=== PATIENT | male | born 1960 | race Caucasian/White ===

== ENCOUNTER → 2019-04-10 | Outpatient (CLI) | payer SELFPAY ==
--- NOTE | 2019-04-10 13:34 | CT_ITS ---
STUDY: CARDIAC CALCIUM SCORING - CT CHEST REASON FOR EXAM: Male, 58 years old. Hyperlipidemia RADIATION DOSAGE (If Supplied By Facility): CTDIvol = ( 12 ) mGy, DLP = ( 244 ) mGycm TECHNIQUE: Axial non-enhanced images were acquired through the heart for the sole purpose of measuring coronary artery calcium. Individualized dose optimization techniques were used for this CT. COMPARISON: None. FINDINGS: Please see the patient's medical record for a personalized calcium score. There are mild emphysematous changes noted in the lungs. There is linear opacity in the lung bases likely represent atelectasis. There are calcified granulomata noted. There are calcified mediastinal lymph nodes, consistent with prior granulomatous disease. There is a 2 cm indeterminate left adrenal nodule. CT/Limited Chest CT w/CCTA IMPRESSION: Please see the patient's medical record for a personalized calcium score. Mild emphysema. Linear opacity in the lung bases which likely represent atelectasis. Evidence of prior granulomatous disease. 2 cm indeterminate left adrenal nodule. Please go to: [email or web address] , for a description of the calculator. Electronically Signed: Mack Valera, at 17:34 EDT Tel , Service support ,
[2019-04-10 13:47] VITALS: BP 140/82; PULSE 71; RESP 16; O2SAT 93; BMI 39.5
--- NOTE | 2019-04-11 09:57 | CA.SCORE ---
Calcium Scoring Date of Study:: 04/10/19 Coronary Calcium Scoring: High-resolution Computed Tomographic imaging of the chest was performed on [ ], with particular attention paid to the coronary arteries. Images from the examination were analyzed for the presence and extent of coronary artery calcification , using coronary calcium quantification software. The patient tolerated the procedure well and there were no complications. The results of the coronary calcification analysis are provided below. - Findings Left Main (LM): 20 Left Anterior Descending (LAD): 0 Left Circumflex (LCX): 0 Right Coronary Artery (RCA): 58 Total Agatston Score: 78 Percentile Rankin-75% Calcium Scoring Interpretation: 0 No identifiable atherosclerotic plaque. Very low cardiovascular disease risk. <5% chance of presence coronary artery disease A Negative Examination 1-10 Minimal Plaque burden. Significant coronary artery disease very unlikely. 11-100 Mild plaque burden. Likely mild or minimal coronary atherosclerosis. 101-400 Moderate plaque burden Moderate non-obstructive coronary artery disease highly likely. Over 400 Extensive plaque burden. High likelihood of at least one significant coronary stenosis (>50% diameter) Conclusion: The total calcium score (78.1) is between the 50th and 75th percentile for men between the ages of 55 and 59. (Exact percentile calculated to be 54%; this means 53% of the population has a lower calcium score and 46% of the population is a higher calcium score than this patient.) A full evaluation of cardiac risk including assessment of all conventional risk factors, and the scores and percentile rankings reported herein should be evaluated in this context.
== END | disposition home or self-care (01) ==
PROVIDERS: Family Provider Internal Medicine; PCP Internal Medicine; Referring Provider Internal Medicine; Visit Provider Internal Medicine
DX: E78.5 Hyperlipidemia, unspecified (principal)
CPT/HCPCS: 75571; 76380

== ENCOUNTER 2020-02-18 09:07 | Emergency (ER) | payer MEDICAID, SELFPAY ==
[2020-02-18 08:07] VITALS: BMI 39.5
[2020-02-18 09:09] VITALS: BP 129/87; PULSE 87; RESP 16; TEMP 36.6; O2SAT 93; BMI 37.9
[2020-02-18 09:18] VITALS: BP 125/94; PULSE 83; RESP 16; O2SAT 95
--- NOTE | 2020-02-18 09:21 | EKG12_ITS ---
Test Reason : CP Blood Pressure : / mmHG Vent. Rate : 080 BPM Atrial Rate : 080 BPM P-R Int : 142 ms QRS Dur : 090 ms QT Int : 386 ms P-R-T Axes : 084 048 071 degrees QTc Int : 445 ms Normal sinus rhythm Normal ECG Confirmed by RACHEL BOATENG ([id number]), newspaper editor managing CLIFF CARO ([id number]) on 02/22/2020 2:13:38 PM Referred By: MICHELLE Confirmed By:RACHEL BOATENG
--- NOTE | 2020-02-18 09:22 | ED.DCSUM_ITS ---
History of Present Illness Chief Complaint: Chest Pain Informant: Patient Onset: Yesterday Activity at onset: - - awoke w/ sx around 24 hrs ago Timing: Continuous Quality: Sharp Location: - - upper mid-chest, radiates straight through to back, nowhere else Current Severity: Moderate Maximum Severity: Moderate Worsened By: Breathing - in deeply, - - lying on sides. Not Worsened By: Exertion, Movement of Arm, Movement of Torso, Eating, Palpation Relieved By: - - lying supine on back. no changes w/ bending over. Associated Symptoms: Negative for: Nausea, Vomiting, Diaphoresis, Dyspnea, Cough, Fever, Lightheadedness, Acid Reflux, Palpitations Narrative: Patient has had this chest discomfort since he woke up yesterday and it has persisted. He went to urgent care this morning, after doing a chest x-ray they sent him to the ER. That result showed stable pleural abnormality in the left base, patient is not having symptoms there. So this is essentially negative for anything acute. He has had no recent travel. Patient presents during the national coronavirus emergency declaration/pandemic. He denies any known contact with anyone infected with COVID-19. He denies traveling out of the immediate area recently. No leg pain or swelling. He has COPD and has experienced no symptoms of illness or exacerbation lately. No changes with exertion. No known history of heart disease. No differences with swallowing or eating. Prior Similar Symptoms: No Recent Illness/Hospitalization: No CVD Risk Factors: Hypertension, Diabetes, - - quite smoking 5-10 yrs ago PE Risk Factors: Negative for: Recent Travel/Surgery, Recenet Immobilization, Prior DVT or PE, Cancer, OCP + Smoking + >/=35 Past Medical History - Allergies and Home Meds Allergies/Adverse Reactions: Allergies No Known Allergies Allergy (Verified 02/18/20 09:08) Primary Care Physician: Amy Griffin DO [Primary Care Provider] - Surgical History: herniorrhaphy Smoking Status: Former smoker Review of Systems General: Denies: Chills, Fever, Sweats Eyes: Denies: Visual changes - bilaterally, Diplopia ENT: Denies: Bilateral ear pain, Rhinorrhea, Sore throat Cardiovascular: Reports: Chest pain. Denies: Palpitations Respiratory: Denies: Dyspnea, Cough, Dyspnea on exertion, Orthopnea Gastrointestinal: Denies: Abdominal pain, Nausea, Vomiting, Diarrhea, Melena, Hematochezia Genitourinary: Denies: Dysuria, Hematuria, Frequency Musculoskeletal: Reports: Back pain. Denies: Myalgias, Neck pain, Swelling, Extremity Pain Skin: Denies: Rash, Wounds Neurological: Denies: Headache, Weakness, Numbness Physical Exam Vital Signs/Narrative: Vital Signs Temp Pulse Resp BP Pulse Ox 02/18/20 09:18 83 16 125/94 H 95 02/18/20 09:09 97.9 F 87 16 129/87 H 93 Inital Vital Signs reviewed: Yes General: Well nourished, Well developed, No Acute Distress Head: Normocephalic, Atraumatic Eyes: Perrl, EOMI ENT: Moist mucous membranes, No rhinorrhea Neck: Supple, Nontender, No lymphadenopathy, No JVD Cardiovascular: Regular rate, Regular rhythm, No murmurs. Negative for: Tachycardia Respiratory: No distress - no splinting on deep inspiration, CTA bilaterally, Chest nontender Abdomen: Soft, Nontender, Nondistended, Normal bowel sounds Back: Nontender, Normal Inspection. Negative for: CVA tenderness Extremities: Nontender - and no palpable cords, No edema. Negative for: Calf Tenderness Skin: Normal color, No rash, No Trauma Neurological: Alert, Oriented x3, Cranial nerves II-XII grossly intact, Normal Strength, Normal Sensation, Normal Gait Psychological: Normal affect, Normal Mood Diagnostic/Tx/Re-eval Laboratory Tests 02/18/20 02/18/20 02/18/20 Range/Units 09:15 09:15 09:15 WBC 10.0 (4.4-11.0) K/mm3 RBC 5.39 (4.6-6.2) M/mm3 Hgb 15.7 (13.0-16.5) g/dL Hct 49.6 (40-54) % MCV 92.0 (80-94) fL MCH 29.1 (27.0-32.0) pg MCHC 31.7 L (32-36) g/dL RDW Std Deviation 43.4 (35.1-43.9) fl RDW Coeff of Buster 12.9 (11.6-14.6) % Plt Count 284 (150-450) K/mm3 MPV 9.5 (6.2-12.0) fl Immature Gran % (Auto) 0.400 (0.0-0.9) % Neut % (Auto) 57.7 (47-70) % Lymph % (Auto) 29.5 (19-41) % [place] % (Auto) 10.7 H (0-10) % Eos % (Auto) 1.3 (0-5) % Baso % (Auto) 0.4 (0-1) % Absolute Neuts (auto) 5.7 (2.0-7.7) X10^3/uL Absolute Lymphs (auto) 2.94 (0.83-4.51) X10^3/uL Nucleated RBC % 0 (0-5) % D-Dimer Quant (PE/DVT) 0.37 (0.27-0.49) FEU/ug/m Sodium 135 L (136-145) mmol/L Potassium 5.2 H (3.5-5.1) mmol/L Chloride 103 (98-107) mmol/L Carbon Dioxide 30.0 (21.0-32.0) mmol/L Anion Gap 2 L (5-15) BUN 20 H (7-18) mg/dL Creatinine 1.13 (0.70-1.30) mg/dL Estim Creat Clear Calc 68.10 ml/min Est GFR (MDRD) Af Amer 85 (>60) mL/min Est GFR (MDRD) Non-Af 71 (>60) mL/min BUN/Creatinine Ratio 17.7 (10-20) RATIO Glucose 110 H (74-106) mg/dL Calcium 9.4 (8.5-10.1) mg/dL Troponin I < 0.015 (<0.045) ng/mL - Rhythm Strip Rhythm Strip: Sinus Rhythm Rate: 80 Ectopy: None Treatment: GI Cocktail Repeat Eval: improved, barely there COSME Risk: No Positive COSME Elements Score: 0 - Medical Decision Making Work-up is unremarkable, I reviewed the chest x-ray that he had at urgent care this morning. D-dimer is within normal limits, ruling out pulmonary embolus as acute cause for the symptoms, his troponin is negative with a normal EKG while he was having symptoms, and the discomfort is atypical so I do not think this is angina. He is feeling better after GI cocktail, stating that when he takes a very deep breath he can barely feel it, esophageal disorders are certainly in the differential here, as are her upper airway disorders, there is no history of a foreign body aspiration, or anything else that is dangerous in my opinion. This is not consistent with pericarditis. He is stable to go home, we discussed his possibilities and he is reassured and comfortable with following up with his doctor for persistent symptoms. We also discussed trying albuterol inhaler if he gets worse, see if that helps anything and he is comfortable with that. He could also try H2 blockers or PPIs, but I do not think he needs any prescr iptions right now. ED Disposition - Plan for ED Patient: Disposition: Home or Assisted Living Diagnosis: Chest pain, atypical Instructions: ED Chest Pain NonCardiac Referrals: Amy Griffin, DO [Primary Care Provider] - 3-5 Days if not improving
[2020-02-18 09:31] LABS: Absolute Lymphocyte Count 2.94 X10^3/uL (0.83-4.51); Absolute Neutrophil Count 5.7 X10^3/uL (2.0-7.7); Basophil# 0.04 X10^3/uL; Basophil% 0.4 % (0-1); Eosinophil# 0.13 X10^3/uL; Eosinophils% 1.3 % (0-5); Hematocrit 49.6 % (40-54); Hemoglobin 15.7 g/dL (13.0-16.5); Lymphocyte # 2.94 X10^3/ul (4.0); Lymphocyte % 29.5 % (19-41); Mean Corp Hgb Conc 31.7 g/dL (32-36); Mean Corpuscular Hgb 29.1 pg (27.0-32.0); Mean Platelet Vol. 9.5 fl (6.2-12.0); Monocyte# 1.06 X10^3/uL; Monocyte% 10.7 % (0-10); NRBC Flagged by Analyzer 0 % (0-5); Neutrophil # 5.74 X10^3/uL (2.7-7.7); Neutrophil % 57.7 % (47-70); Platelet Count 284 K/mm3 (150-450); RBC Distribution Width CV 12.9 % (11.6-14.6); RBC Distribution Width SD 43.4 fl (35.1-43.9); Red Blood Count 5.39 M/mm3 (4.6-6.2)
[2020-02-18] MEDS: Mag Hydrox/Al Hydrox/Simeth 30 ML UDC PO (09:31)
[2020-02-18 09:44] LABS: Anion Gap 2 (5-15); BUN 20 mg/dL (7-18); BUN/Creat Ratio 17.7 RATIO (10-20); Calcium,Total 9.4 mg/dL (8.5-10.1); Chloride 103 mmol/L (98-107); Creatinine, Serum 1.13 mg/dL (0.70-1.30); D-Dimer Quantitative (DVT/PE) 0.37 FEU/ug/m (0.27-0.49); EST Glomerular Filtration Rate 71 mL/min (>60); Est Glom Filt Rate - Afr Amer 85 mL/min (>60); Glucose 110 mg/dL (74-106); Potassium 5.2 mmol/L (3.5-5.1); Sodium Level 135 mmol/L (136-145)
[2020-02-18 10:22] VITALS: BP 111/81; PULSE 75; RESP 16; O2SAT 94
[2020-02-18 10:36] VITALS: BP 103/78; PULSE 69; RESP 15; O2SAT 97
== END 2020-02-18 10:41 | disposition home or self-care (01) ==
PROVIDERS: Emergency Provider Emergency Medicine; PCP Internal Medicine
DX: R07.89 Other chest pain (principal); J06.9 Acute upper respiratory infection, unspecified; E11.9 Type 2 diabetes mellitus without complications; I10 Essential (primary) hypertension; Z87.891 Personal history of nicotine dependence
CPT/HCPCS: 71046; 80048; 84484; 85025; 85379; 93005; 99284; A4216

== ENCOUNTER → 2020-02-18 | Outpatient (CLI) | payer MEDICAID, SELFPAY ==
[2020-02-18 08:07] VITALS: BMI 39.5
--- NOTE | 2020-02-18 08:14 | RAD_ITS ---
STUDY: X-RAY CHEST REASON FOR EXAM: Male, 59 years old. Pain w deep inspiration x 2 days TECHNIQUE: PA and lateral views of the chest. COMPARISON: Comparison is made with prior study dated 08/09/2016. FINDINGS: Hyperinflation. Stable pleural parenchymal changes at the left lung base. Normal size heart. Normal mediastinum and narinder. Normal visualized pulmonary arteries. Normal visualized aortic arch and descending thoracic aorta. There are diffuse degenerative changes of the visualized thoracic spine. Normal visualized ribs, clavicles, and shoulders. There is no demonstrated abnormality of the visualized soft tissue structures of the upper abdomen. RAD/Chest PA and Lateral IMPRESSION: Stable pleural-parenchymal changes of the left lung base. Electronically Signed: Peter Bernabe, at 8:36 EDT , Service support ,
== END | disposition home or self-care (01) ==
LOC: HPRAD 08:14
PROVIDERS: PCP Internal Medicine; Referring Provider Physician Assistant Surgical; Visit Provider Physician Assistant Surgical
DX: J06.9 Acute upper respiratory infection, unspecified (principal)
CPT/HCPCS: 71046

== ENCOUNTER 2021-04-18 17:05 | Emergency (ER) | payer OTHER, MEDICAID, SELFPAY ==
[2021-04-18 17:06] VITALS: BP 178/131; PULSE 88; RESP 14; TEMP 36.8; O2SAT 95; BMI 37.8
--- NOTE | 2021-04-18 17:20 | EX.ED.GENINJ ---
HPI History of Present Illness Chief Complaint: Head Injury Informant: patient Onset/Context/Timing Onset: Today (Just prior to arrival) Mechanism/Context: Blunt Injury and Fall Location of pain/injuries: - (Scalp) Quality of Pain: - (Sore) Current Severity: Mild Maximum Severity: Mild Worsened by: Palpation Relieved by: Leaving alone with regards to pain, but bleeding better with pressure Associated Symptoms Associated Symptoms: Negative for Parasthesias, Weakness, Loss of function, Inability to ambulate, Loss of consciousness and Amnesia Narrative Narrative: Patient states he was folding up his camper, he was on a stepstool and accidentally tipped over, he fell and when he caught himself on the ground, his scalp hit a industrial engineering technologist on the ground sustaining a laceration to his scalp. He denies any other injuries. He denies any neurologic symptoms, vision changes, headache, nausea, vomiting. He is on no anticoagulants and no antiplatelets. Tetanus Immunization: >10 years [facility] Medical History (Updated 04/18/21 @ 19:[address] Ag Ruiz MD) Allergic rhinitis Gyopd-[id number] deficiency Anxiety disorder Chronic obstructive lung disease Hypertension Nicotine dependence in remission Home Medications losartan 50 mg tablet 50 mg PO DAILY 02/18/20 [History Last Taken Unknown] metformin 500 mg tablet 500 mg PO DAILY 02/18/20 [History Last Taken Unknown] Allergy/AdvReac Type Severity Reaction Status Date / Time No Known Allergies Allergy Verified 04/18/21 17:05 Family History Mother Breast cancer Father CAD (coronary artery disease) Surgical History History of ventral hernia repair S/P colonoscopy Social History Smoking Status: Former smoker quit date: 01/05/14 pack-years: 78 alcohol intake: never substance use type: does not use what type of physical activity do you participate in: walking and weight training frequency: 3-4 times per week ROS ROS ED Constitutional Constitutional ED: Denies chills or fever(s) Cardiovascular Cardiovascular: Denies chest pain or pedal edema Respiratory/Chest Respiratory/Chest: Denies cough or dyspnea Gastrointestinal Gastrointestinal: Denies nausea or vomiting Musculoskeletal Musculoskeletal: Denies abnormal gait, back pain, difficulty walking, extremity pain, joint pain, neck pain or numbness Integumentary Denies Abrasions, rash or wounds Neurologic Neurologic: Denies headache(s), paresthesias, seizures or weakness EXAM Physical Exam Const Vital Signs: 04/18/21 17:06 04/18/21 17:37 Temperature 98.2 F Temperature Source Temporal Pulse Rate 88 Respiratory Rate 14 Respiratory Effort Normal Non-Labored Respiratory Depth Normal Respiratory Pattern Normal Blood Pressure 178/131 H Blood Pressure Mean 146 Pulse Ox 95 Oxygen Delivery Method Room Air Positive well nourished and well developed General Appearance ED: well developed and NAD HEENT HEENT Narrative: 4 cm full-thickness scalp laceration on top of the patient's head, no crepitance or depression, minimally tender. No active bleeding after the patient was holding pressure for a while. No brar sign, periorbital ecchymosis, extraocular palsy, CSF otorhinorrhea, hemotympanum. Eyes PERRL, EOMs intact bilaterally and conjunctivae normal Neck full ROM and supple Back/Spine normal ROM and normal to inspection Neuro oriented x3, no focal motor deficits and no sensory deficits noted Sensorium / Orientation: alert Psych mental status grossly normal and thought process normal Skin Rashes: no rashes Trauma: laceration linear PROC Procedures Lacerations scalp: Length: 5 cm Depth: Fascia (down to galea, which is intact) Shape: irregular Prep: Sterile Conditions and Chlorhexadine Laceration repair: Irrigated (60cc sterile saline under pressure), Lidocaine with epi (5cc), Local and Wound explored (galea intact) Number of Sutures/[place]: 6 Suture Information: - (stainless steel skin suzanne) MDM MDM MDM Narrative Medical decision making narrative: Patient meets [place] head CT rule for observation and not requiring a CT scan. He was fine with that. He did not develop any symptoms of a head injury/concussion. His laceration was repaired after observation. In emergency department, he was discharged home in stable improved condition, suzanne out in approximately 6 days. Discharge Plan Triage Chief Complaint: Head Injury ED Provider: Ag Ruiz Dx/Rx/DC Orders Clinical Impression: Laceration of scalp Instructions: ED Laceration Scalp Stitches or Suzanne Prescriptions: No Action losartan 50 mg tablet 50 mg PO DAILY RF: 0 metformin 500 mg tablet 500 mg PO DAILY RF: 0 Primary Care Provider: Amy Griffin Referrals: Amy Griffin DO [Primary Care Provider] - 7 Days for suture removal Disposition Disposition: Home, Self Care
[2021-04-18] MEDS: Diphth,Pertuss(Acell),Tet Vac 0.5 ML Vial IM (17:30)
[2021-04-18] MEDS: Lidocaine 1% /Epi 1:100 (20ml) 20 ML Vial 10 ML INFILT (18:17)
== END 2021-04-18 19:14 | disposition home or self-care (01) ==
PROVIDERS: Emergency Provider Emergency Medicine; PCP Internal Medicine
DX: S01.01XA Laceration without foreign body of scalp, initial encounter (principal); W01.0XXA Fall on same level from slipping, tripping and stumbling without subsequent striking against object, initial encounter; Z87.891 Personal history of nicotine dependence
CPT/HCPCS: 12002; 90715; 99284

== ENCOUNTER 2021-07-23 11:42 | Outpatient (CLI) | payer OTHER, MEDICAID, SELFPAY ==
[2021-07-23] MEDS: 0.9% Saline Lock 10 ML Syringe IV (12:00)
[2021-07-23 12:01] VITALS: BP 156/102; PULSE 75; RESP 18; TEMP 36.8; O2SAT 93; BMI 37.2
[2021-07-23 13:00] VITALS: BP 143/86; PULSE 63; RESP 16; TEMP 36.8; O2SAT 94
[2021-07-23 13:48] VITALS: BP 138/89; PULSE 62; RESP 16; TEMP 36.8; O2SAT 95
== END 2021-07-23 23:59 | disposition home or self-care (01) ==
LOC: MS3OUT 11:43 → MS3 11:43
PROVIDERS: PCP Internal Medicine; Referring Provider Nurse Practitioner Adult Health; Visit Provider Nurse Practitioner Adult Health
DX: Z23 Encounter for immunization (principal); E11.9 Type 2 diabetes mellitus without complications; U07.1 COVID-19
CPT/HCPCS: J7050; M0245; Q0245; A4216

== ENCOUNTER → 2021-12-18 | Outpatient (CLI) | payer OTHER, MEDICAID, SELFPAY ==
--- NOTE | 2021-12-18 16:40 | RAD_ITS ---
EXAM: XR CHEST, 2 VIEWS CLINICAL INDICATION: CHRONIC SHORTNESS OF BREATH TECHNIQUE: Frontal and lateral views of the chest. This report was created using [employer] report generation technology. COMPARISON: 02/18/20 FINDINGS: LUNGS AND PLEURAL SPACES: 6 mm calcified granuloma involving the right midlung. No pneumothorax. No effusion. HEART: Unremarkable. Cardiac silhouette not enlarged. MEDIASTINUM: Central airways and mediastinal contour are unremarkable. BONES/JOINTS: Degenerative changes of the spine. Diffuse osteopenia. SOFT TISSUES: Unremarkable. RAD/Chest PA and Lateral IMPRESSION: No acute disease. Electronically Signed: Janes Alicia MD at 23:35 EDT ,
== END | disposition home or self-care (01) ==
PROVIDERS: PCP Internal Medicine; Referring Provider Internal Medicine; Visit Provider Internal Medicine
DX: R06.02 Shortness of breath (principal)
CPT/HCPCS: 71046

== ENCOUNTER → 2022-01-12 | Outpatient (CLI) | payer OTHER, MEDICAID, SELFPAY ==
--- NOTE | 2022-01-12 13:59 | PFTCOMP ---
COMPLETE PULMONARY FUNCTION TEST INTERPRETATION Brief HPI: Patient is a 61-year-old male, currently under the care of Dr. Griffin, who presents to [facility] for complete pulmonary function tests secondary to diagnosis of post COVID. Respiratory therapist reports good effort and reproducible results. Interpretation: Forced expiration spirometry shows a severe large airways obstructive ventilatory defect with an FEV1 of 39% predicted. There is no significant bronchodilator response by strict ATS criteria. Spirograms are of good quality and plateau slowly, indicating slowly emptying areas of the lungs. The respiratory flow volume loop shows decreased expiratory flow rates at all lung volumes consistent with airway obstruction. Lung volumes by body plethysmography show an elevated total lung capacity at 9.18 L, 143% predicted. FRC and RV are elevated out of proportion. Lung volume measurements are consistent with hyperinflation and air-trapping. Diffusion capacity by carbon monoxide is decreased at 69% predicted. The airway resistance is normal. Compared to previous pulmonary function tests from 10/18/2016, there has been no significant change in spirometry or DLCO, but air-trapping is much worse. Impression: Irreversible severe large airways obstructive ventilatory defect resulting in air trapping with hyperinflation and a reduction in diffusion capacity.
== END | disposition home or self-care (01) ==
PROVIDERS: PCP Internal Medicine; Referring Provider Internal Medicine; Visit Provider Internal Medicine
DX: R06.02 Shortness of breath (principal)
CPT/HCPCS: 94010; 94060; 94726; 94729

== ENCOUNTER → 2023-03-12 | Outpatient (CLI) | payer OTHER, MEDICAID, SELFPAY ==
[2023-03-12 12:42] VITALS: PULSE 100; PULSE 74; PULSE 78; PULSE 89; PULSE 91; PULSE 93; PULSE 96; PULSE 98; O2SAT 85; O2SAT 89; O2SAT 90; O2SAT 92; O2SAT 93; O2SAT 94; O2SAT 96
--- NOTE | 2023-03-13 09:55 | PCM.PSN.6M ---
PSN 6 Minute Walk Test 6 Minute Walk Test 6 Minute Walk Test: 6 Minute Walk Test PSN:6-Minute Walk Test Start: 03/12/23 12:41 Freq: Status: Active Protocol: [id number].6MINW Document 03/12/23 12:42 VIC (Rec: 03/12/23 12:45 VIC [id number]) 6 Minute Walk Test Date Performed 03/12/23 Time Performed 12:30 Height 5 ft 9 in Weight: 252 lb Weight in Pounds 252.[address]: Wilberto Pires Assistive device used: None Pre-test Oxygen Delivery Method Room Air Pulse Ox 93 Pulse Rate (60-100) 78 Dyspnea Josh Scale (0-10) 0 Exertion Josh Scale (6-20) 6 1st minute Oxygen Delivery Method Room Air Pulse Ox 92 Pulse Rate (60-100) 89 2nd minute Oxygen Delivery Method Room Air Pulse Ox 85 Pulse Rate (60-100) 91 3rd minute Oxygen Flow Rate (L/min) 2 Oxygen Delivery Method Nasal Cannula Pulse Ox 94 Pulse Rate (60-100) 93 4th minute Oxygen Flow Rate (L/min) 2 Oxygen Delivery Method Nasal Cannula Pulse Ox 92 Pulse Rate (60-100) 96 5th minute Oxygen Flow Rate (L/min) 2 Oxygen Delivery Method Nasal Cannula Pulse Ox 89 Pulse Rate (60-100) 100 6th minute Oxygen Flow Rate (L/min) 2 Oxygen Delivery Method Nasal Cannula Pulse Ox 90 Pulse Rate (60-100) 98 Dyspnea Josh Scale (0-10) 3 Exertion Josh Scale (6-20) 13 Post-test Oxygen Flow Rate (L/min) 2 Oxygen Delivery Method Nasal Cannula Pulse Ox 96 Pulse Rate (60-100) 74 Full Laps Walked 17 Partial Lap, Number of Tiles Walked 2 Total Distance Walked (ft) 1005 Interpretation Interpretation: The patient ambulated 1005 feet over the course of 6 minutes beginning on room air without assistive devices. Pretesting oxygen saturation was noted to be 93% on room air. With ambulation, the [place] oxygen saturation was 85%, requiring the initiation of 2 L/min to maintain appropriate oxygen saturations throughout the remainder of the test. Recommendations Recommendations: 2 L/min of supplemental oxygen should be utilized with exertion.
== END | disposition home or self-care (01) ==
LOC: PSN 12:13
PROVIDERS: PCP Internal Medicine; Referring Provider Internal Medicine Critical Care Medicine; Visit Provider Internal Medicine Critical Care Medicine
DX: J44.9 Chronic obstructive pulmonary disease, unspecified (principal); E88.01 Alpha-1-antitrypsin deficiency
CPT/HCPCS: 94618

== ENCOUNTER → 2023-03-14 | Outpatient (CLI) | payer OTHER, MEDICAID, SELFPAY ==
--- NOTE | 2023-03-14 12:41 | CT_ITS ---
STUDY: LOW DOSE CT LUNG CANCER SCREENING REASON FOR EXAM: Male, 62 years old. Former smoker. The patient smoked 2 packs per day for 33 years. COPD. RADIATION DOSAGE (If Supplied By Facility): CTDIvol = ( 3.18 ) mGy, DLP = ( 104.03 ) mGycm TECHNIQUE: No contrast was administered. Low dose technique was utilized (average mAS-38 and kVp 120). 1.25 mm axial source images with a slice interval of 1.25-mm were reconstructed in lung windows. 2.5 mm axial source images with a slice interval of 2.5-mm were reconstructed in lung windows. 5.0 mm axial source images with a slice interval of 5.0-mm were reconstructed in soft tissue windows. COMPARISON: Comparison is made with prior study September 10, 2016. NODULES: No suspicious nodules are seen. Calcified granuloma in the right lower lobe. Emphysema: Hyperinflation. Mild degree of emphysematous changes. Thickening of the right and left major fissures. Scarring in the posterior aspect of the lingular segment of the left upper lobe as well as the anterior aspect of the right lower lobe adjacent to the fissure with focal bronchiectasis. Stable mild scarring at the lung bases. Endobronchial lesion: None Aorta: Atherosclerotic plaque formation of the aortic arch. CORONARY ARTERIES: Coronary artery calcification is seen. Heart: Unremarkable. Pulmonary artery: Unremarkable. Mediastinal nodes: Calcified subcarinal and right hilar lymph nodes. Other chest and abdominal findings: Stable 2.4 cm nodule in the crux of the left adrenal gland. CT/Low Dose CT Lung Screening IMPRESSION: Lung-RADS category 2 - Continue annual screening with LDCT in 12 months. IMPORTANT NOTES FOR USE: ACR Lung-RADS Version 1.1 Assessment Categories Release Date: 2018 Category: Coded 0-4 bases on nodule(s) with highest degree of suspicion. Negative screen is defined as categories 1 and 2; a positive screen is defined as categories 3 and 4. Category 3 and 4A nodules that are unchanged on interval CT should be coded as category 2, and individuals returned to screening in 12 months. Category 4X: Category 3 or 4 nodules with additional imaging findings that increase the suspicion of lung cancer, such as spiculation, GGN that doubles in size in 1 year, enlarged lymph notes, etc. Category Modifiers: S (significant finding unrelated to lung cancer) Electronically Signed: Peter Bernabe MD at 15:25 EDT ,
--- NOTE | 2023-03-15 09:42 | PFT ---
INTRODUCTION: The patient is a 62-year-old male who presents for pulmonary function studies secondary to a diagnosis of COPD. Respiratory therapy reported good patient effort. Bronchodilators were used during testing. INTERPRETATION: Forced expiration spirometry demonstrates the presence of a severe large airways obstructive ventilatory defect. There was no significant response to aerosolized bronchodilators. Spirograms are of good quality but do not plateau indicating slow emptying of the lungs. Body plethysmography was performed and revealed lung volumes to be within normal limits. Diffusing capacity by single breath CO was reduced to 54% of predicted. IMPRESSION: Irreversible severe large airways obstructive ventilatory defect with symmetric reduction in diffusing capacity.
== END | disposition home or self-care (01) ==
PROVIDERS: PCP Internal Medicine; Referring Provider Internal Medicine Critical Care Medicine; Visit Provider Internal Medicine Critical Care Medicine
DX: Z12.2 Encounter for screening for malignant neoplasm of respiratory organs (principal); J44.9 Chronic obstructive pulmonary disease, unspecified; E88.01 Alpha-1-antitrypsin deficiency; Z87.891 Personal history of nicotine dependence
CPT/HCPCS: 71271; 94060; 94726; 94729

== ENCOUNTER → 2023-06-17 | Outpatient (CLI) | payer OTHER, MEDICAID, SELFPAY | END | disposition home or self-care (01) | LOC: SL 19:44 | PROVIDERS: PCP Internal Medicine; Referring Provider Nurse Practitioner Acute Care; Visit Provider Nurse Practitioner Acute Care | DX: G47.10 Hypersomnia, unspecified (principal) | CPT/HCPCS: 95811 ==

== ENCOUNTER → 2023-07-04 | Outpatient (CLI) | payer OTHER, MEDICAID, SELFPAY | END | disposition home or self-care (01) | LOC: SL 11:54 | PROVIDERS: PCP Internal Medicine; Visit Provider Nurse Practitioner Acute Care | DX: Z46.89 Encounter for fitting and adjustment of other specified devices (principal) ==

== ENCOUNTER → 2023-07-31 | Outpatient (CLI) | payer OTHER, MEDICAID, SELFPAY ==
[2023-07-31 18:00] LABS: Absolute Lymphocyte Count 2.49 X10^3/uL (0.83-4.51); Absolute Neutrophil Count 5.3 X10^3/uL (2.0-7.7); Basophil# 0.02 X10^3/uL; Basophil% 0.2 % (0-1); Eosinophil# 0.07 X10^3/uL; Eosinophils% 0.8 % (0-5); Hematocrit 44.8 % (40-54); Hemoglobin 14.3 g/dL (13.0-16.5); Lymphocyte # 2.49 X10^3/ul (0.83-4.51); Lymphocyte % 28.5 % (19-41); Mean Corp Hgb Conc 31.9 g/dL (32-36); Mean Corpuscular Hgb 29.5 pg (27.0-32.0); Mean Corpuscular Volume 92.4 fL (80-94); Mean Platelet Vol. 9.7 fl (6.2-12.0); Monocyte# 0.89 X10^3/uL; Monocyte% 10.2 % (0-10); NRBC Flagged by Analyzer 0 % (0-5); Neutrophil # 5.25 X10^3/uL (2.7-7.7); Platelet Count 257 K/mm3 (150-450); RBC Distribution Width CV 13.1 % (11.6-14.6); RBC Distribution Width SD 44.3 fl (35.1-43.9); Red Blood Count 4.85 M/mm3 (4.6-6.2); White Blood Count 8.8 K/mm3 (4.4-11.0)
[2023-07-31 18:05] LABS: ALB/GLOB Ratio 0.9 RATIO (0.9-2.4); AST(SGOT) 29 U/L (15-37); Alanine Aminotransfer ALT/SGPT 40 U/L (16-61); Albumin, Serum 3.7 g/dL (3.2-5.0); Alkaline Phosphatase 53 U/L (45-117); Anion Gap 6 (5-15); BUN 27 mg/dL (7-18); Calcium,Total 9.6 mg/dL (8.5-10.1); Chloride 105 mmol/L (98-107); Creatinine, Serum 1.08 mg/dL (0.70-1.30); EST Glomerular Filtration Rate 73 mL/min (>60); Est Glom Filt Rate - Afr Amer 89 mL/min (>60); Glucose 105 mg/dL (74-106); Potassium 3.7 mmol/L (3.5-5.1); Protein, Total 7.7 g/dL (6.4-8.2); Sodium Level 140 mmol/L (136-145); Troponin-I HS 6 pg/mL (3.0-78.0)
== END | disposition home or self-care (01) ==
PROVIDERS: PCP Internal Medicine; Referring Provider Internal Medicine; Visit Provider Internal Medicine
DX: R53.81 Other malaise (principal)
CPT/HCPCS: 36415; 80053; 84443; 84484; 85025

== ENCOUNTER → 2023-08-12 | Outpatient (CLI) | payer OTHER, MEDICAID, SELFPAY ==
[2023-08-12 18:13] LABS: Hemoglobin A1c 7.7 % (3.8-5.6)
== END | disposition home or self-care (01) ==
LOC: MTLAB 16:45
PROVIDERS: PCP Internal Medicine; Referring Provider Internal Medicine; Visit Provider Internal Medicine
DX: E11.65 Type 2 diabetes mellitus with hyperglycemia (principal)
CPT/HCPCS: 36415; 83036

== ENCOUNTER 2023-11-25 19:45 | Emergency (ER) | payer OTHER, MEDICAID, SELFPAY ==
[2023-11-25] VITALS (16 sets, daily range): BP systolic 106–148; BP diastolic 58–91; PULSE 68–92; RESP 11–20; TEMP 36–36.9; O2SAT 90–97; BMI 37.9
--- NOTE | 2023-11-25 20:31 | ED.VIS.DYS ---
HPI History of Present Illness Chief Complaint: Shortness of Breath [facility] Medical History (Reviewed 10/07/23 @ 14:29 by Madai Self CUSTOMS COMPLIANCE DIRECTOR, CUSTOMS COMPLIANCE DIRECTOR-C) Allergic rhinitis [id number] deficiency Anxiety disorder Chronic obstructive lung disease Hypertension Nicotine dependence in remission Scalp laceration Home Medications ?Medication ?Instructions ?Recorded ?Last Taken ?Type citalopram 20 mg tablet 20 mg PO DAILY 07/23/21 Unknown History losartan 100 1 tab PO DAILY 07/23/21 Unknown History mg-hydrochlorothiazide 25 mg tablet metformin 500 mg tablet,extended 500 mg PO DAILY 07/23/21 Unknown History release 24 hr rosuvastatin 20 mg tablet 20 mg PO QHS 07/23/21 Unknown History albuterol sulfate 90 mcg/actuation 2 puff inhalation Q4H PRN 02/26/23 Unknown History aerosol inhaler alprazolam 0.5 mg tablet 0.5 mg PO .PRN 05/29/23 Unknown History metoprolol succinate 50 mg 50 mg PO DAILY 05/29/23 Unknown History tablet,extended release 24 hr sitagliptin phosphate 100 mg 100 mg PO DAILY 05/29/23 Unknown History tablet (Januvia) fluticasone fur. 100 mcg-umeclid 1 inh inhalation DAILY #60 ea 10/07/23 Unknown Rx 62.5 mcg-vilant 25 mcg inhalat.powder (Trelegy Ellipta) fluticasone propionate 50 2 spray intranasal DAILY #16 grams 10/07/23 Unknown Rx mcg/actuation nasal spray,suspension levothyroxine 50 mcg tablet 50 mcg PO DAILY 10/07/23 Unknown History azithromycin 500 mg tablet 500 mg PO DAILY 5 days #5 tabs 11/25/23 Unknown Rx prednisone 50 mg tablet 50 mg PO DAILY #5 tabs 11/25/23 Unknown Rx Allergy/AdvReac Type Severity Reaction Status Date / Time No Known Allergies Allergy Verified 10/07/23 14:13 Family History (Reviewed 10/07/23 @ 14:29 by Madai Self CUSTOMS COMPLIANCE DIRECTOR, CUSTOMS COMPLIANCE DIRECTOR-C) Mother Breast cancer Father CAD (coronary artery disease) Surgical History (Reviewed 10/07/23 @ 14:29 by Madai Self CUSTOMS COMPLIANCE DIRECTOR, CUSTOMS COMPLIANCE DIRECTOR-C) History of ventral hernia repair S/P colonoscopy Social History (Reviewed 10/07/23 @ 14:29 by Madai Self CUSTOMS COMPLIANCE DIRECTOR, CUSTOMS COMPLIANCE DIRECTOR-C) Smoking Status: Former smoker quit date: 01/05/18 pack-years: 78 alcohol intake: never substance use type: does not use what type of physical activity do you participate in: walking and weight training frequency: 3-4 times per week EXAM Physical Exam Const Vital Signs: 11/25/23 19:46 11/25/23 20:14 11/25/23 20:18 Temperature 96.8 F L 96.8 F L Temperature Source Temporal Temporal Pulse Rate 92 92 Respiratory Rate 20 H 20 H Respiratory Effort Normal Non-Labored Respiratory Depth Normal Respiratory Pattern Normal Blood Pressure 148/91 H 148/91 H Blood Pressure Mean 110 110 Pulse Ox 92 92 Oxygen Delivery Method Room Air Room Air Room Air 11/25/23 20:39 11/25/23 21:00 11/25/23 21:02 Temperature 98.5 F Temperature Source Oral Pulse Rate 90 72 Respiratory Rate 18 20 H Respiratory Effort Respiratory Depth Respiratory Pattern Normal Blood Pressure 123/82 H Blood Pressure Mean 95 Pulse Ox 91 Oxygen Delivery Method Room Air Room Air 11/25/23 21:40 11/25/23 21:45 11/25/23 21:50 Temperature 98.1 F Temperature Source Oral Pulse Rate 90 Respiratory Rate 15 Respiratory Effort Respiratory Depth Respiratory Pattern Blood Pressure 145/83 H Blood Pressure Mean 103 Pulse Ox 90 91 91 Oxygen Delivery Method 11/25/23 22:00 11/25/23 23:00 11/25/23 23:19 Temperature 98.1 F 97.9 F 98 F Temperature Source Oral Temporal Pulse Rate 70 68 80 Respiratory Rate 20 H 18 20 H Respiratory Effort Respiratory Depth Respiratory Pattern Blood Pressure 115/80 107/58 L 130/89 H Blood Pressure Mean 91 74 102 Pulse Ox 90 91 97 Oxygen Delivery Method Room Air Room Air MDM MDM MDM Narrative Medical decision making narrative: HISTORY OF PRESENT ILLNESS: 63-year-old male presents with shortness of breath. Notes increased shortness of breath. No chest pain or antibiotics and steroids. Denies fever. Denies chills. Denies cough fever chills Denies leg swelling. The patient denies recent surgery in the last 4 weeks or immobilization in the last 3 days, denies previous diagnosis of DVT or PE, hemoptysis, unilateral leg swelling or malignancy with treatment the last 6 months or palliative. No estrogen use noted. REVIEW OF SYSTEMS: Pertinent positives: Shortness of breath Pertinent negatives: Chest pain, leg swelling PHYSICAL EXAM: Nursing triage notes reviewed, Vital signs reviewed Constitutional: please see mdm HENT: MMM Eyes: Pupils equal round and reactive to light, Extraocular muscles intact Neck: No stridor, no JVD, full neck ROM Lungs: Diminished throughout all lung hopkins, positive wheezing bilaterally. No increased work of breathing, no conversational dyspnea, no accessory muscle use, no nasal flaring. No respiratory distress noted Heart: Regular rate and rhythm, No murmurs, No rubs and No gallops, 2+ distal pulses (radial, femoral, posterior tibial) in all extremities Abdomen: Soft, there is no tenderness, rigidity, rebound or guarding, no obvious peritoneal signs, no palpable pulsatile abdominal masses, no auscultated abdominal bruit : No CVAT Extremities: No edema Neuro: No focal neurological deficits, cranial nerves II through XII intact, 5/5 strength in all extremities. Intact sensation to light touch in all extremities, 2+ reflexes bilateral patella tendons. Normal gait. No ataxia. Skin: No rash or lesions noted MEDICAL DECISION MAKING: Chief Complaint: Shortness of breath External records reviewed: Prior chest x-ray reviewed shows no evidence of pneumonia Factors affecting care: Alpha-1 antitrypsin deficiency, tobacco abuse, JUANI, chronic hypoxic respiratory failure Social determinants of health: Tobacco abuse History obtained from others: none Consults: none [facility] Narrative: Patient was hemodynamically stable, afebrile and nontoxic-appearing. Exam consistent with COPD exacerbation. No stigmata of VTE I considered the following differential diagnosis: Pneumonia, COPD exacerbation, anemia, PE, arrhythmia, ACS ALL IMAGES (IF OBTAINED) HAVE BEEN PERSONALLY REVIEWED AND INTERPRETED BY MYSELF. VBG without evidence of acidosis, normal bicarb, no signs of DKA CBC with leukocytosis, no anemia, no thrombocytopenia BMP with pseudohyponatremia, no other significant electrolyte normalities, no anion gap, no acute kidney injury, noted severe hyperglycemia I have personally reviewed the patient's chest x-ray. Chest x-ray is unremarkable for pulmonary edema, pneumothorax, pneumonia or focal cardiopulmonary abnormality. EKG with normal sinus rhythm, normal axis, normal intervals, no STEMI acetone negative COVID and flu negative BNP within normal limits suggestive of no heart failure The synthesis of the patient history, physical exam, labs images suggest a COPD exacerbation. There is no signs of pneumonia, ACS, heart failure PE arrhythmia or or other life-threatening etiology. The patient ambulated here maintaining saturation between 90 and 91% which is appropriate for COPD. He has home oxygen. I will treat the patient with steroids and azithromycin for antimicrobial and anti-inflammatory prophylaxis. 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 The patient and/or family, caregivers agrees with the plan. Shared decision making: I will have a discussion with the patient and or visitors regarding risk/benefits of further testing or admission. They will be made aware of of the risk/benefits inherent in this decision they will be given the opportunity to voice understanding. Total critical care time today provided was at least 0minutes. This excludes separately billable procedures. Critical care time (if documented) is secondary to the patient having high probability of clinically significant/life threatening deterioration in the patient's condition which required my urgent intervention. Impression: 1. Dyspnea 2. Poorly controlled type 2 diabetes 3. COPD exacerbation Dispo: Discharge home This note was generated with [employer] dictation software. It may contain incorrect words, spelling, and punctuation that were not noted in review of the chart prior to signing. Lab Data Labs: Laboratory Results - last 24 hr 11/25/23 11/25/23 11/25/23 21:00 21:40 23:18 WBC 14.2 H RBC 5.30 Hgb 15.6 Hct 47.9 MCV 90.4 MCH 29.4 MCHC 32.6 RDW Std Deviation 41.1 RDW Coeff of Buster 12.5 Plt Count 274 MPV 10.1 Immature Gran % (Auto) 1.500 H Neut % (Auto) 71.9 H Lymph % (Auto) 18.6 L Paul[place] % (Auto) 6.9 Eos % (Auto) 0.5 Baso % (Auto) 0.6 Absolute Neuts (auto) 10.3 H Absolute Lymphs (auto) 2.64 Nucleated RBC % 0 Sodium 128 L Potassium 4.2 Chloride 91 L Carbon Dioxide 28.0 Anion Gap 9 BUN 49 H Creatinine 1.33 H Estim Creat Clear Calc 71.57 Est GFR (MDRD) Af Amer 70 Est GFR (MDRD) Non-Af 58 L BUN/Creatinine Ratio 36.8 H Glucose 645 H* Calcium 9.8 Troponin I High Sens 6 B-Natriuretic Peptide 3.1 Acetone Level NEGATIVE POC Glucose 431 H ABG Data ABG results: ABG 05/20/24 21:46 Specimen Type THAO Sample Site Not entered VBG pH 7.40 VBG pO2 35 VBG HCO3 28 H VBG Total CO2 29 VBG O2 Sat (Calc) 67 VBG Base Excess 3 POC Mix VBG pCO2 Pt Tmp 44.7 O2 Delivery Device Room Air Radiography Diagnostic Testing: Clinical Impression(s) from Imaging Studies Chest X-Ray 11/25/23 21:05 IMPRESSION: Normal x-ray examination of the chest. Electronically Signed: Jonas Munroe MD at 21:14 EDT , Discharge Plan Triage Chief Complaint: Shortness of Breath ED Provider: Randal Martinez Dx/Rx/DC Orders Instructions: ED COPD Flare Prescriptions: New prednisone 50 mg tablet 50 mg PO DAILY Qty: 5 0RF azithromycin 500 mg tablet 500 mg PO DAILY 5 Days Qty: 5 0RF No Action albuterol sulfate 90 mcg/actuation HFA aerosol inhaler 2 puff inhalation Q4H PRN metoprolol succinate 50 mg tablet extended release 24 hr 50 mg PO DAILY Patient Comments: TAKE 1 TABLET BY MOUTHOONCE DAILY alprazolam 0.5 mg tablet 0.5 mg PO .PRN Patient Comments: TAKE 1 TABLET BY MOUTHCONCE DAILY NEEDED Januvia 100 mg tablet 100 mg PO DAILY Patient Comments: TAKE 1 TABLET BY MOUTHEONCE DAILY fluticasone propionate 50 mcg/actuation spray,suspension 2 spray intranasal DAILY Qty: 16 3RF Trelegy Ellipta 100-62.5-25 mcg blister with device 1 inh inhalation DAILY Qty: 60 5RF losartan-hydrochlorothiazide 100-25 mg tablet 1 tab PO DAILY citalopram 20 mg tablet 20 mg PO DAILY metformin 500 mg tablet extended release 24 hr 500 mg PO DAILY rosuvastatin 20 mg tablet 20 mg PO QHS levothyroxine 50 mcg tablet 50 mcg PO DAILY Rx Instructions: 2 tabs on Saturdays. Primary Care Provider: Amy Griffin Referrals: Amy Griffin DO [Primary Care Provider] - Activity Restrictions/Additional Instructions: Thank you for trusting us with your care today! Please take Tylenol (2 pills, 650 mg), ibuprofen (2 pills, 400 mg) every 6 hours as needed for pain and fever control. Please return to the emergency department if your symptoms change or worsen. Please follow with your primary care physician for further outpatient evaluation and management. Print Language: Kittitian
--- NOTE | 2023-11-25 20:38 | EKG12_ITS ---
Test Reason : DYSRHYTHMIA Blood Pressure : / mmHG Vent. Rate : 083 BPM Atrial Rate : 083 BPM P-R Int : 150 ms QRS Dur : 084 ms QT Int : 374 ms P-R-T Axes : 078 061 067 degrees QTc Int : 439 ms Normal sinus rhythm Normal ECG Confirmed by Stefano Brady ([id number]), technical editor KASSY BELL ([id number]) on 11/26/2023 8:10:20 AM Referred By: Confirmed By:Stefano Brady
[2023-11-25] MEDS: Ipratropium/Albuterol Sulfate 3 ML AMPUL.NEB INHALATION (20:39)
--- NOTE | 2023-11-25 21:05 | RAD_ITS ---
STUDY: X-RAY CHEST REASON FOR EXAM: Male, 63 years old. SOB TECHNIQUE: Single AP portable view of the chest. COMPARISON: 11/14/2023 FINDINGS: The lungs are clear and expanded. There is no demonstrated pleural abnormality. Normal size heart. Normal mediastinum and narinder. Normal visualized pulmonary arteries. Normal visualized aortic arch and descending thoracic aorta. Normal visualized thoracic spine. Normal visualized ribs, clavicles, and shoulders. There is no demonstrated abnormality of the visualized soft tissue structures of the upper abdomen. RAD/Chest 1 View (Portable) IMPRESSION: Normal x-ray examination of the chest. Electronically Signed: Jonas Munroe MD at 21:14 EDT ,
[2023-11-25 21:10] LABS: Absolute Lymphocyte Count 2.64 X10^3/uL (0.83-4.51); Absolute Neutrophil Count 10.3 X10^3/uL (2.0-7.7); Basophil# 0.08 X10^3/uL; Basophil% 0.6 % (0-1); Eosinophil# 0.07 X10^3/uL; Eosinophils% 0.5 % (0-5); Hematocrit 47.9 % (40-54); Hemoglobin 15.6 g/dL (13.0-16.5); Lymphocyte # 2.64 X10^3/ul (0.83-4.51); Lymphocyte % 18.6 % (19-41); Mean Corp Hgb Conc 32.6 g/dL (32-36); Mean Corpuscular Hgb 29.4 pg (27.0-32.0); Mean Corpuscular Volume 90.4 fL (80-94); Mean Platelet Vol. 10.1 fl (6.2-12.0); Monocyte# 0.98 X10^3/uL; Monocyte% 6.9 % (0-10); NRBC Flagged by Analyzer 0 % (0-5); Neutrophil # 10.25 X10^3/uL (2.7-7.7); Neutrophil % 71.9 % (47-70); Platelet Count 274 K/mm3 (150-450); RBC Distribution Width CV 12.5 % (11.6-14.6); RBC Distribution Width SD 41.1 fl (35.1-43.9); White Blood Count 14.2 K/mm3 (4.4-11.0)
[2023-11-25 21:31] LABS: BNP,B-Type NATRIURETIC PEPTIDE 3.1 pg/mL (0-100)
[2023-11-25 21:34] LABS: Anion Gap 9 (5-15); BUN 49 mg/dL (7-18); BUN/Creat Ratio 36.8 RATIO (10-20); Calcium,Total 9.8 mg/dL (8.5-10.1); Chloride 91 mmol/L (98-107); Creatinine, Serum 1.33 mg/dL (0.70-1.30); EST Glomerular Filtration Rate 58 mL/min (>60); Est Glom Filt Rate - Afr Amer 70 mL/min (>60); Estimated Creatinine Clearance 71.57 ml/min; Glucose 645 mg/dL (74-106); Potassium 4.2 mmol/L (3.5-5.1); Sodium Level 128 mmol/L (136-145); Troponin-I HS 6 pg/mL (3.0-78.0)
[2023-11-25 21:50] LABS: Blood Gas Specimen Type VEN; O2 Delivery Device Room Air; SITE Not entered; VBG BASE EXCESS 3 mmol/L (-1.0-3.5); VBG Bicarbonate 28 mmol/L (22-26); VBG PO2 35 mmHg (25-40); VBG SO2 67 % (50-70); VBG TCO2 29 mmol/L (23-33); VBG pCO2 44.7 mmHg (41-51)
[2023-11-25] MEDS: 0.9% Normal Saline (500mL Bag) 500 ML 999 ML IV (21:55)
[2023-11-25 23:35] LABS: Bedside Glucose 431 mg/dL (74-106)
[2023-11-26] VITALS: BP 116/79; RESP 7; O2SAT 92
[2023-11-26 00:15] VITALS: RESP 7; O2SAT 92
== END 2023-11-26 00:26 | disposition home or self-care (01) ==
PROVIDERS: Emergency Provider Emergency Medicine; PCP Internal Medicine; Visit Provider Emergency Medicine
DX: J44.1 Chronic obstructive pulmonary disease with (acute) exacerbation (principal); E11.65 Type 2 diabetes mellitus with hyperglycemia; G47.33 Obstructive sleep apnea (adult) (pediatric); Z87.891 Personal history of nicotine dependence
CPT/HCPCS: 71045; 80048; 82009; 82803; 82962; 83880; 84484; 85025; 87631; 93005; 94640; 96360; 99284; J7030; A4216

== ENCOUNTER → 2024-03-20 | Outpatient (CLI) | payer OTHER, MEDICAID, SELFPAY ==
--- NOTE | 2024-03-20 18:32 | CT_ITS ---
EXAM: CT CHEST, LUNG CANCER SCREENING WITHOUT INTRAVENOUS CONTRAST CLINICAL INDICATION: smoker TECHNIQUE: Helically acquired images were obtained of the chest without intravenous contrast using low dose (LDCT) lung cancer screening protocol. This CT exam was performed using one or more of the following dose reduction techniques: automated exposure control, adjustment of the mA and/or kV according to patient size, and/or use of iterative reconstruction technique. COMPARISON: 03/14/2023 FINDINGS: LUNGS AND PLEURAL SPACES: There are mild emphysematous changes in the upper lobes. There is atelectasis in the right lung base. There is atelectasis or scarring in the lingula. No mass. No pleural effusion or thickening. No pneumothorax. HEART: Unremarkable. Heart size is normal. No pericardial effusion. No significant coronary artery calcifications. MEDIASTINUM: Unremarkable. No mediastinal or hilar adenopathy. Esophagus is unremarkable. No hiatal hernia. THYROID: Unremarkable. No thyroid lesions. BONES/JOINTS: Unremarkable. No suspicious lytic or blastic abnormality. VASCULATURE: Unremarkable. Thoracic aorta is non-dilated. LYMPH NODES: Unremarkable. No enlarged lymph nodes. CT/Low Dose CT Lung Screening IMPRESSION: Scarring or atelectasis in the right lung base and lingula. There are no pulmonary nodules. There has been minimal change from the reference exam. Lung-RADS score: 1 - Recommend continued annual screening with a low-dose CT (LDCT) in 12 months. Electronically Signed: Abel Guerrero MD at 23:58 EDT ,
== END | disposition home or self-care (01) ==
LOC: CT 18:32
PROVIDERS: PCP Internal Medicine; Visit Provider Nurse Practitioner Acute Care
DX: F17.210 Nicotine dependence, cigarettes, uncomplicated (principal)
CPT/HCPCS: 71271

== ENCOUNTER → 2024-09-23 | Outpatient (CLI) | payer OTHER, SELFPAY ==
[2024-09-23 23:12] LABS: Hemoglobin A1c 7.6 % (<=5.6)
== END | disposition home or self-care (01) ==
PROVIDERS: PCP Internal Medicine; Referring Provider Internal Medicine; Visit Provider Internal Medicine
DX: E11.65 Type 2 diabetes mellitus with hyperglycemia (principal)
CPT/HCPCS: 36415; 83036

== ENCOUNTER → 2025-02-18 | Outpatient (CLI) | payer OTHER, SELFPAY ==
--- NOTE | 2025-02-18 16:42 | CT_ITS ---
PROCEDURE: ABDOMEN W/WO IV CONTRAST 02/18/2025 REASON FOR EXAM: CT ABDOMEN WO/W CON TECHNIQUE: ABDOMEN W/WO IV CONTRAST. Multiplanar Sagittal and Coronal images were obtained. One or more dose reduction techniques were used (e.g., Automated exposure control, adjustment of the mA and/or kV according to patient size, use of iterative reconstruction technique. CONTRAST: Isovue 370 VOLUME: 99 mL RADIATION DOSE SUMMARY: CTDlvol: 107.38 mGy DLP: 2120.96 mGycm COMPARISON: None. FINDINGS: Lung bases: There is bronchiectasis and peribronchial consolidation in the lower lobe of the right lung. There is pleural-based consolidation in the inferior segment of the lingula. There are no pleural effusions. There is no significant calcific vascular disease of the coronary arteries. Liver: Normal. Gallbladder: Normal. Spleen: There is a benign calcified granuloma. Otherwise unremarkable. Pancreas: Normal. Adrenals: There is a 2.6 cm in diameter nodule in the left adrenal gland. Absolute washout is 72.9% and relative washout is 63.9%, consistent with an adrenal adenoma. The right adrenal gland is unremarkable. Kidneys: Normal. Bowel: There are scattered diverticuli seen in the visualized portion of the colon. Visualized portion of the gastrointestinal tract is otherwise unremarkable. Lymph nodes: There is no significant mesenteric or retroperitoneal lymphadenopathy identified. Vasculature: There is calcific vascular disease of the abdominal aorta. There is ectasia of the infrarenal abdominal aorta without aneurysm. Peritoneum / Retroperitoneum: There are no abnormal intra or retroperitoneal masses or fluid collections. There are no abdominal wall defects. Bones: There is mild multilevel degenerative disc disease of the lower thoracic and lumbar spine. CT/Abdomen W/WO IV Contrast IMPRESSION: 1. The left adrenal nodule is consistent with an adenoma. 2. Right lower lobe bronchiectasis with peribronchial consolidation of indeter minate age. 3. Other findings as noted. Reading Location: [id number]
[2025-02-18 17:07] LABS: CREATININE FINGERSTICK < 1.0 mg/dL (0.70-1.30); EGFR FINGERSTICK > 60.0000 mL/min (>60)
== END | disposition home or self-care (01) ==
LOC: CT 16:39
PROVIDERS: PCP Internal Medicine; Referring Provider Internal Medicine; Visit Provider Internal Medicine
DX: E27.9 Disorder of adrenal gland, unspecified (principal)
CPT/HCPCS: 74170; Q9967

== ENCOUNTER → 2025-03-22 | Outpatient (CLI) | payer OTHER, SELFPAY ==
[2025-03-22 08:22] LABS: Mucous, Urine 0 SEEN /hpf (<or=2+); Squamous Epithelial Cells - UA 0 SEEN /hpf (0-5)
[2025-03-22 10:14] LABS: Color, Urine Yellow (Yellow); Glucose, Dipstick Normal (Normal); Ketone-Dipstick Negative (Negative); Leukocyte Esterase-Dipstick Negative /ul (Negative); Nitrite-Dipstick Negative (Negative); Occult Blood-Urine 10 /ul (Negative); Protein-Dipstick 100 mg/dl (Negative); Specific Gravity, Urine 1.015 (1.002-1.030); Urine Bilirubin Dipstick Negative (Negative)
[2025-03-22 10:21] LABS: Red Blood Cells-Urine 0-5 SEEN /hpf (0-5)
[2025-03-22 10:22] LABS: Hematocrit 46.4 % (40-54); Hemoglobin 15.7 g/dL (13.0-16.5); Immature Granulocytes Count 0.020 X10^3/uL (0.0-0.0); Mean Corp Hgb Conc 33.8 g/dL (32-36); Mean Corpuscular Volume 89.7 fL (80-94); Mean Platelet Vol. 9.3 fl (6.2-12.0); NRBC Flagged by Analyzer 0 % (0-5); Platelet Count 226 K/mm3 (150-450); RBC Distribution Width CV 12.5 % (11.6-14.6); RBC Distribution Width SD 41.1 fl (35.1-43.9); Red Blood Count 5.17 M/mm3 (4.6-6.2); White Blood Count 8.1 K/mm3 (4.4-11.0)
[2025-03-22 10:31] LABS: Creatinine, Urine (random) 91.40 mg/dL (39.00-259.00)
[2025-03-22 10:45] LABS: Microalbumin,Random Urine 695.0 mg/L (<20 mg/L)
[2025-03-22 10:54] LABS: AST(SGOT) 20 U/L (<=37); Alanine Aminotransfer ALT/SGPT 17 U/L (<=46); Albumin, Serum 4.3 g/dL (3.4-4.8); Alkaline Phosphatase 52 U/L (40-129); Anion Gap 14 (5-15); BUN 15 mg/dL (4-19); BUN/Creat Ratio 18.2 RATIO (10-20); Calcium,Total 9.7 mg/dL (7.6-11.0); Carbon Dioxide 23.6 mmol/L (21.0-32.0); Chloride 100 mmol/L (98-108); Cholesterol 125 mg/dL (<=200); Globulin 3.2 g/dL (2.2-4.2); Glucose 116 mg/dL (70-99); Low Density Lipoprotein Calc. 58 mg/dL; Potassium 4.0 mmol/L (3.3-5.1); Triglycerides 83 mg/dL; Very Low Density Lipoprotein 17 mg/dL (5-40); Vitamin D,25 Hydroxy 40.3 ng/mL (30-100); cholesterol:hdl ratio screen 2.48
[2025-03-31 11:09] LABS: Dopamine, 24Ur 148 ug/24 hr (0-510); Epinephrine, 24Ur < 6 ug/24 hr (0-20); Metanephrine, Ur 41 ug/L (Undefined); Metanephrines, 24Ur 78 ug/24 hr (58-276); Norepinephrine, 24Ur 32 ug/24 hr (0-135); Norepinephrine, Ur 17 ug/L (Undefined); Normetanephrines, 24Ur 287 ug/24 hr (156-729); Normetanephrines, Ur 151 ug/L (Undefined); VMA, 24UR 2.7 mg/24 hr (0.0-7.5); VMA, UR 1.4 mg/L (Undefined)
== END | disposition home or self-care (01) ==
LOC: MTLAB 08:05
PROVIDERS: PCP Internal Medicine; Referring Provider Internal Medicine; Visit Provider Internal Medicine
DX: E78.5 Hyperlipidemia, unspecified (principal); E11.65 Type 2 diabetes mellitus with hyperglycemia; R80.9 Proteinuria, unspecified; E03.9 Hypothyroidism, unspecified; E55.9 Vitamin D deficiency, unspecified; D35.02 Benign neoplasm of left adrenal gland
CPT/HCPCS: 36415; 80053; 80061; 81001; 81050; 82043; 82306; 82384; 82570; 83036; 83835; 84443; 84585; 85025